=== PATIENT | male | born 2000 | race Hispanic/Latino ===

== ENCOUNTER 2018-01-22 21:20 | Emergency (ER) | payer BC ==
[2018-01-22 21:49] LABS: Bilirubin Negative (Negative); Blood, Urine Trace (Negative); Clarity Hazy (Clear); Glucose, Urine (Dipstick) Negative (Negative); Leukocyte Small (Negative); Nitrite Negative (Negative); Protein, Urine (Dipstick) Negative (Neg-Trace); Specific Gravity, Urine 1.015 (1.005-1.030)
[2018-01-22 22:00] LABS: Bacteria/HPF 2+ HPF (None Seen); RBC/HPF 0-3 HPF (0-3); Squamous Epithelial None Seen HPF (0-3)
[2018-01-22] MEDS ORDERED: Azithromycin 250 MG TAB ONE (22:26)
[2018-01-22] MEDS ORDERED: Lidocaine 1% PF 5 ML VIAL ONE (22:26)
[2018-01-22] MEDS ORDERED: cefTRIAXone\\ROCEPHIN 250 MG VIAL ONE (22:26)
[2018-01-22] MEDS ORDERED: metroNIDAZOLE 500 MG TAB ONE (22:26)
[2018-01-23 22:46] LABS: Chlamydia by PCR Not Detected (NotDetected); GC by PCR Not Detected (NotDetected)
== END 2018-01-22 22:46 | disposition home or self-care (01) ==
LOC: SCSER 21:20
DX: N34.2 Other urethritis (principal)
CPT/HCPCS: 81003; 81015; 87491; 87591; 96372; J0696; J2001